=== PATIENT | male | born 1970 | race Caucasian/White ===

== ENCOUNTER → 2021-06-28 | Outpatient (CLI) | payer OTHER | END | disposition home or self-care (01) | LOC: LABMN 10:16 | PROVIDERS: ATTEND Internal Medicine | DX: Z02.1 Encounter for pre-employment examination (principal) | CPT/HCPCS: 86706; 86735; 86762; 86765; 86787 ==

== ENCOUNTER 2021-08-08 01:26 | Emergency (ER) | payer OTHER ==
[~2021-08-08] VITALS: Ht 177.8 cm; Wt 81.0 kg
[2021-08-08 02:01] VITALS: BP 136/79
== END 2021-08-08 02:38 | disposition home or self-care (01) ==
LOC: EMS 01:27
DX: S39.011A Strain of muscle, fascia and tendon of abdomen, initial encounter (principal); Z91.040 Latex allergy status; Z88.6 Allergy status to analgesic agent; X50.9XXA Other and unspecified overexertion or strenuous movements or postures, initial encounter; Y93.89 Activity, other specified; Y92.89 Other specified places as the place of occurrence of the external cause; Y99.8 Other external cause status
CPT/HCPCS: 99281; Z7502